=== PATIENT | male | born 1985 | race Asian ===

== ENCOUNTER 2018-07-22 21:59 | Emergency (ER) | payer OTHER ==
[2018-07-22] MEDS ORDERED: ASPIRIN 81 MG CHEWABLE TAB PO ONE (22:34)
--- NOTE | 2018-07-22 22:38 | EDPHY ---
H & P Stated Complaint: L side chest pain x2wks, increasing pain today Time Seen by Provider: 07/22/18 22:25 HPI/ROS: HPI The patient presents with left-sided chest, axillary and arm pain which have been present for the last 2 weeks though became worse today. The patient's symptoms began after working out at the gym which is something he normally does not. Since then he reports a heaviness of his left arm and chest associated with shortness of breath. His symptoms are intermittent though worse with changes in position and exertion. He has never had this before. He does not have any leg swelling, recent airplane trips, nausea, vomiting, dizziness. He saw Dr. Miller a few days ago and had an EKG in the office which was unremarkable. She has referred him for stress echo through [facility] which will happen in 3 days. REVIEW OF SYSTEMS 10 systems were reviewed and negative with the exception of the elements mentioned in the history of present illness. PMHx: Recent labs reveal hypercholesterolemia, otherwise GERD Soc Hx: Nonsmoker FHx: Father with diabetes and hypertension PHYSICAL General Appearance: Alert, no distress Eyes: Pupils equal and round no pallor or injection ENT, Mouth: Mucous membranes moist Respiratory: There are no retractions, lungs are clear to auscultation Cardiovascular: Regular rate and rhythm Gastrointestinal: Abdomen is soft and non-tender, no masses, bowel sounds normal Neurological: A&O, moves all extremities Skin: Warm and dry, no rashes Musculoskeletal: Neck is supple non tender Extremities: symmetrical, full range of motion Psychiatric: Patient is oriented X 3, there is no agitation Source: Patient Exam Limitations: No limitations - Personal History Current Tetanus Diphtheria and Acellular Pertussis (TDAP): Yes - Medical/Surgical History Hx Asthma: No Hx Chronic Respiratory Disease: No Hx Diabetes: No Hx Cardiac Disease: No Hx Renal Disease: No Hx Cirrhosis: No Hx Alcoholism: No Hx HIV/AIDS: No Hx Splenectomy or Spleen Trauma: No Other PMH: GERD - Social History Smoking Status: Never smoked Constitutional: Initial Vital Signs Temperature (C) 36.7 C 07/22/18 22:01 Heart Rate 87 07/22/18 22:01 Respiratory Rate 18 07/22/18 22:01 Blood Pressure 138/94 H 07/22/18 22:01 O2 Sat (%) 97 07/22/18 22:01 O2 Delivery Mode Room Air Allergies/Adverse Reactions: No Known Allergies Allergy (Unverified 07/22/18 22:00) Home Medications: Medication Instructions Recorded Hydrocodone/APAP 5/325 [[place] 1 - 2 tab PO Q4-6PRN PRN #8 tab 10/14/15 5/325 (RX)] Medical Decision Making - Diagnostics EKG Interpretation: EKG: Complete interpretation has been separately recorded in the [facility] archive. Summary impression: Normal sinus rhythm Imaging Results: Imaging Impressions Chest X-Ray 07/22/18 22:11 Impression: Normal. Imaging: Discussed imaging studies w/ call out clerk Radiologist, I viewed and interpreted images myself Differential Diagnosis: 33-year-old male with GERD and obesity, recent hypercholesterolemia on lab testing presents with 2 weeks of left-sided chest and arm pain. On exam, normal vital signs and generally well-appearing. Symptoms became worse today without clear provoking factor. Differential diagnosis includes ACS, pneumonia, pulmonary embolism, less likely aortic dissection. In the emergency department, patient had EKG, chest x-ray, basic labs including a troponin which are all normal. We performed repeat troponin testing which was unremarkable again. The patient's pain improved while in the emergency department. It does seem to have a muscular component as when he moves his shoulder at feels better. He does have follow-up for outpatient echo and stress test in 3 days. I have calculated his heart score at 2. He is suitable for continued outpatient management of his pain. I have discussed using ibuprofen and Tylenol in the case that this is musculoskeletal. He is happy with this plan. - Data Points Laboratory Results: Laboratory Results 07/22/18 20:45 07/22/18 20:45 07/23/18 07/22/18 07/22/18 00:57 22:51 20:45 WBC RBC Hgb Hct MCV MCH MCHC RDW Plt Count MPV Neut % (Auto) Lymph % (Auto) [place] % (Auto) Eos % (Auto) Baso % (Auto) Nucleat RBC Rel Count Absolute Neuts (auto) Absolute Lymphs (auto) Absolute Monos (auto) Absolute Eos (auto) Absolute Basos (auto) Absolute Nucleated RBC Immature Gran % Immature Gran # D-Dimer Sodium 138 mEq/L mEq/L (135-145) Potassium 3.9 mEq/L mEq/L (3.3-5.0) Chloride 104 mEq/L mEq/L (97-110) Carbon Dioxide 23 mEq/l mEq/l (22-31) Anion Gap 11 mEq/L mEq/L (6-14) BUN 13 mg/dL mg/dL (7-23) Creatinine 0.9 mg/dL mg/dL (0.7-1.3) Estimated GFR > 60 Glucose 99 mg/dL mg/dL (70-100) Calcium 10.0 mg/dL mg/dL (8.5-10.4) POC Troponin I 0.00 ng/mL ng/mL 0.00 ng/mL ng/mL (0.00-0.08) (0.00-0.08) 07/22/18 07/22/18 20:45 20:45 WBC 9.75 10^3/uL H 10^3/uL (3.80-9.50) RBC 5.56 10^6/uL 10^6/uL (4.40-6.38) Hgb 16.2 g/dL g/dL (13.7-17.5) Hct 46.7 % % (40.0-51.0) MCV 84.0 fL fL (81.5-99.8) MCH 29.1 pg pg (27.9-34.1) MCHC 34.7 g/dL g/dL (32.4-36.7) RDW 12.2 % % (11.5-15.2) Plt Count 330 10^3/uL 10^3/uL (150-400) MPV 9.5 fL fL (8.7-11.7) Neut % (Auto) 54.1 % % (39.3-74.2) Lymph % (Auto) 34.3 % % (15.0-45.0) [place] % (Auto) 9.5 % % (4.5-13.0) Eos % (Auto) 1.4 % % (0.6-7.6) Baso % (Auto) 0.5 % % (0.3-1.7) Nucleat RBC Rel Count 0.0 % % (0.0-0.2) Absolute Neuts (auto) 5.27 10^3/uL 10^3/uL (1.70-6.50) Absolute Lymphs (auto) 3.34 10^3/uL H 10^3/uL (1.00-3.00) Absolute Monos (auto) 0.93 10^3/uL H 10^3/uL (0.30-0.80) Absolute Eos (auto) 0.14 10^3/uL 10^3/uL (0.03-0.40) Absolute Basos (auto) 0.05 10^3/uL 10^3/uL (0.02-0.10) Absolute Nucleated RBC 0.00 10^3/uL 10^3/uL (0-0.01) Immature Gran % 0.2 % % (0.0-1.1) Immature Gran # 0.02 10^3/uL 10^3/uL (0.00-0.10) D-Dimer < 0.27 ug/mLFEU ug/mLFEU (0.00-0.50) Sodium Potassium Chloride Carbon Dioxide Anion Gap BUN Creatinine Estimated GFR Glucose Calcium POC Troponin I Medications Given: Discontinued Medications Acetaminophen (Tylenol) 1,000 mg PO EDNOW ONE Stop: 07/23/18 01:17 Last Admin: 07/23/18 01:35 Dose: 1,000 mg Aspirin (Aspirin) 324 mg PO EDNOW ONE Stop: 07/22/18 22:35 Last Admin: 07/22/18 22:44 Dose: 324 mg Ibuprofen (Motrin) 400 mg PO EDNOW ONE Stop: 07/23/18 01:17 Last Admin: 07/23/18 01:35 Dose: 400 mg Point of Care Test Results: Chemistry 07/23/18 07/22/18 00:57 22:51 POC Troponin I 0.00 ng/mL ng/mL 0.00 ng/mL ng/mL (0.00-0.08) (0.00-0.08) Departure - Departure Disposition: Home, Routine, Self-Care Clinical Impression: Shortness of breath Left shoulder pain Qualifiers: Chronicity: acute Qualified Code(s): M25.512 - Pain in left shoulder Condition: Good Instructions: Chest Pain (ED) Additional Instructions: Please take it easy over the next few days. I recommend you try ibuprofen 400 mg or acetaminophen 650 mg every 6 hr for pain. Please follow-up with your stress test as planned in a few days. You should return to the emergency department if your worse in any way. Referrals: Grodberg,Merary B, MD [Primary Care Provider] - As per Instructions
[2018-07-22 22:56] LABS: PLATELET COUNT 330 10^3/uL (150-400)
[2018-07-23] MEDS ORDERED: IBUPROFEN 200 MG TAB PO ONE (01:16)
[2018-07-23] MEDS ORDERED: ACETAMINOPHEN 500 MG TAB PO ONE (01:16)
[2018-07-23 01:42] VITALS: BP 128/87
--- NOTE | 2018-07-23 04:10 | CPEKG ---
Test Reason : OPEN Blood Pressure : / mmHG Vent. Rate : 077 BPM Atrial Rate : 078 BPM P-R Int : 155 ms QRS Dur : 099 ms QT Int : 366 ms P-R-T Axes : -02 -38 017 degrees QTc Int : [address] elev, probable normal early repol pattern Confirmed by Angie Chung ([id number]) on 07/23/2018 4:09:44 AM Referred By: Confirmed By:Angie Chung
== END 2018-07-23 01:42 | disposition home or self-care (01) ==
DX: R06.02 Shortness of breath (principal); M25.512 Pain in left shoulder; K21.9 Gastro-esophageal reflux disease without esophagitis; E66.9 Obesity, unspecified; Z68.37 Body mass index [BMI] 37.0-37.9, adult
CPT/HCPCS: 84484-PO